=== PATIENT | female | born 1940 | race Caucasian/White ===

== ENCOUNTER → 2017-01-28 | Outpatient (CLI) | payer OTHER | LOC: KOH-I 14:50 | DX: R05 Cough (principal); J98.11 Atelectasis | CPT/HCPCS: 71020 ==

== ENCOUNTER → 2017-04-08 | Outpatient (CLI) | payer OTHER ==
[2017-04-08 15:25] LABS: HEMOGLOBIN 6.8 gm/dl (12.3-15.3)
== END ==
LOC: OPSV 14:00
PROVIDERS: Internal Medicine Hematology & Oncology
DX: D64.9 Anemia, unspecified (principal)
CPT/HCPCS: 36415; 36430; 85014; 85018; 86850; 86900; 86901; 86920; 96374; J1940; J7050; P9016; Q0163

== ENCOUNTER → 2017-04-09 | Outpatient (CLI) | payer OTHER ==
[~2017-04-09] VITALS: Ht 170.2 cm; Wt 61.7 kg
== END ==
LOC: OPSV 08:23
DX: D64.9 Anemia, unspecified (principal)
CPT/HCPCS: 36430; J7050; P9016; Q0163

== ENCOUNTER → 2017-05-28 | Outpatient (CLI) | payer OTHER | LOC: OPSV 13:00 | DX: D64.9 Anemia, unspecified (principal); D51.8 Other vitamin B12 deficiency anemias; M31.8 Other specified necrotizing vasculopathies ==

== ENCOUNTER 2021-03-09 15:12 | Emergency (ER) | payer OTHER | END 2021-03-09 16:47 | disposition home or self-care (01) | LOC: ER1 15:12 | DX: M17.11 Unilateral primary osteoarthritis, right knee (principal); I10 Essential (primary) hypertension; Z88.0 Allergy status to penicillin | CPT/HCPCS: 73560; 99283 ==